=== PATIENT | female | born 1960 ===

== ENCOUNTER 2016-11-20 06:16 | Day surgery (SDC) | payer OTHER ==
[2016-11-20 06:55] VITALS: BMI 30.2
[2016-11-20] MEDS ORDERED: Propofol 10 mg/ml Inj (20 ML) ONE (09:44)
[2016-11-20] MEDS ORDERED: Midazolam 2 MG/2 ML VIAL ONE (09:44)
[2016-11-20] MEDS ORDERED: Lactated Ringer's 500 ML IV SCH (09:45)
[2016-11-20] MEDS ORDERED: Lactated Ringer's 1,000 ML IV ONE (09:45)
[2016-11-20 09:53] VITALS: O2SAT 100
[2016-11-20 12:09] VITALS: BP 140/65; PULSE 82; RESP 22; TEMP 97
== END 2016-11-20 11:45 | disposition home or self-care (01) ==
LOC: C.ENDO 06:16
PROVIDERS: ATTEND Internal Medicine Gastroenterology
DX: K62.5 Hemorrhage of anus and rectum (principal); K64.1 Second degree hemorrhoids; K44.9 Diaphragmatic hernia without obstruction or gangrene; K29.70 Gastritis, unspecified, without bleeding; B37.89 Other sites of candidiasis; R10.13 Epigastric pain
CPT/HCPCS: 43239; 45378; 88305; J2250; J2704; J7120

== ENCOUNTER 2016-12-22 14:30 | Emergency (ER) | payer OTHER ==
[2016-12-22 14:30] VITALS: BMI 30.2
[2016-12-22 15:00] VITALS: BP 129/83; PULSE 70; RESP 18; TEMP 97.9; O2SAT 99
--- NOTE | 2016-12-22 16:07 | C.PDOC ---
History Of Present Illness 56 yo female come in for evaluation of Left upper arm pain gradually developed for past 2 days. 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 Pt reports, pain is localized over biceps area, reproducible, worse with Left arm movement/lifting. Otherwise, pt denies known direct trauma or injury, fever, chills, headache, dizziness, neck pain, CP, SOB , dyspnea, palpitation, denies deformity, weakness, sensory or vascular deficits to Left arm. Ambulate to Ed for evaluation, not in any apparent distress. Time Seen by Provider: 12/22/16 15:05 Chief Complaint (Nursing): Upper Extremity Problem/Injury History Per: Patient Past Medical History Reviewed: Historical Data, Nursing Documentation, Vital Signs Vital Signs: Last Vital Signs Temp 97.9 F 12/22/16 14:58 Pulse 70 12/22/16 14:58 Resp 18 12/22/16 14:58 BP 129/83 12/22/16 14:58 Pulse Ox 99 12/22/16 14:58 - Medical History PMH: Anxiety, Arthritis, Depression, Fractures, Seizures (LAST SEIZURE AT AGE 17 ) Denies: Chronic Kidney Disease Surgical History: Endoscopy - [facility] Procedures CLOSED [NEEDLE] BIOPSY OF TONGUE (01/27/14) ESOPHAGOGASTRODUODENOSCOPY [EGD] W/CLOSED BIOPSY (08/10/14) OPEN BIOPSY OF TONGUE (07/18/13) OTHER ENDOSCOPY OF SM INTEST (01/19/14) PHARYNGEAL BIOPSY (01/27/14) VENOUS CATHETERIZATION NEC (05/25/13) Family History: States: Unknown Family Hx - Social History Hx Tobacco Use: No Hx Alcohol Use: No Hx Substance Use: No - Immunization History Hx Tetanus Toxoid Vaccination: Yes Hx Influenza Vaccination: No Hx Pneumococcal Vaccination: No Review Of Systems Except As Marked, All Systems Reviewed And Found Negative. Constitutional: Negative for: Fever, Chills Eyes: Negative for: Vision Change Cardiovascular: Negative for: Chest Pain, Palpitations, Orthopnea, Edema, Light Headedness Respiratory: Negative for: Cough, Shortness of Breath, Wheezing Genitourinary: Negative for: Incontinence Musculoskeletal: Positive for: Arm Pain. Negative for: Neck Pain Skin: Negative for: Rash, Bruising Neurological: Negative for: Weakness, Numbness, Altered Mental Status, Headache , Dizziness Physical Exam - Physical Exam Appears: Well, Non-toxic, No Acute Distress Skin: Normal Color, Warm, No Rash, No Ecchymosis Head: Normacephalic Eye(s): bilateral: PERRL Oral Mucosa: Moist Throat: No Erythema, No Drooling Neck: Trachea Midline, No Midline Cervical Tenderness, No Paracervical Tenderness, No Step Off Deformity, Supple Chest: Symmetrical, No Deformity, No Tenderness Cardiovascular: Rhythm Regular, No Murmur, No JVD Respiratory: No Decreased Breath Sounds, No Stridor, No Wheezing Back: No Vertebral Tenderness Extremity: Normal ROM (mild discomfort to Left arm abduction, left elbow flexion. No neurovascular deficits.), Tenderness (Left upper arm overlying biceps area, no palpable deformity, no skin changes. ), Capillary Refill (less tahn 2sec to Left hand), No Deformity, No Swelling Neurological/Psych: Oriented x3, Normal Speech, Normal Motor, Normal Sensation, Normal Reflexes ED Course And Treatment O2 Sat by Pulse Oximetry: 99 Pulse Ox Interpretation: Normal - Other Rad Left shoulder X-Ray: Interpreted by Me, Viewed By Me Interpretation: no acute fx or dislocation Progress Note: SLing applied to Left arm. On re-eval, pt is afebrile, hemodynamicaly stable. Non-toxic. LUE: exam c/w arm muscle strain. No skin cange, no neurovascular deficits. Neuorlogicaly intact. Imaging review and appears normal. Pt advised, ref. to F/U with PMD, Ortho in 2-3 days for re- eavl. return to ED if any worsening or new changes. Disposition Counseled Patient/Family Regarding: Studies Performed, Diagnosis, Need For Followup, Rx Given - Disposition Referrals: [facility] [Outside] Disposition: HOME/ ROUTINE Disposition Time: 16:07 Condition: STABLE Additional Instructions: Light duty to Left arm, rest Take pain medication as need for pain Follow up with pMD, Ortho in 2-3 days for re-evaluation. Return to ED if any worsening or new changes. Prescriptions: Ibuprofen [Motrin Tab] 600 mg PO Q6 #20 tab Methocarbamol [Robaxin] 500 mg PO TID #14 tab Instructions: Muscle Strain (ED), Arm Pain (ED) Forms: [facility] (H[place]ian), Work Excuse - Clinical Impression Clinical Impression: Upper arm pain
--- NOTE | 2016-12-22 16:33 | RAD ---
PROCEDURE: Radiographs of the Left Shoulder HISTORY: pain COMPARISON: No prior. FINDINGS: BONES: Normal. No fracture. JOINTS: Normal. Glenohumeral and acromioclavicular joints preserved. No osteoarthritis. SOFT TISSUES: Normal. OTHER FINDINGS: None. IMPRESSION: Normal radiographs of the left shoulder.
== END 2016-12-22 16:35 | disposition home or self-care (01) ==
LOC: C.ER 14:30
DX: M79.622 Pain in left upper arm (principal)

== ENCOUNTER 2018-05-31 08:32 | Outpatient (CLI) | payer OTHER | END 2018-05-31 08:33 | disposition home or self-care (01) | LOC: C.LAB 08:32 | DX: N39.0 Urinary tract infection, site not specified (principal); M25.50 Pain in unspecified joint; Z13.29 Encounter for screening for other suspected endocrine disorder; Z13.220 Encounter for screening for lipoid disorders; Z55.9 Problems related to education and literacy, unspecified; R53.1 Weakness ==